=== PATIENT | female | born 1970 | race Caucasian/White ===

== ENCOUNTER 2017-01-10 23:11 | Emergency (ER) | payer BC ==
[~2017-01-10] VITALS: Ht 170.2 cm; Wt 81.6 kg
[2017-01-10 23:45] LABS: BILIRUBIN,URINE NEGATIVE (NEGATIVE); KETONES,URINE NEGATIVE (NEGATIVE); LEUKOCYTE ESTERASE ,URINE 3+ (NEGATIVE); NITRITE,URINE NEGATIVE (NEGATIVE); PH,URINE 6 (5-9); PROTEIN,URINE 3+ (NEGATIVE); UROBILINOGEN,URINE NORMAL (NORMAL)
--- NOTE | 2017-01-10 23:45 | ED Abdominal Pain ---
General Chief Complaint: Abdominal/GI Problems Stated Complaint: ABD PAIN Nursing Triage Note: PT TO ED 6 W/ C/ O RECTAL BLEEDING ONSET YESTERDAY ET VAGINAL BLEEDING ONSET TODAY. REPORTS HAD RECTAL BLEEDING X5 WKS AGO, WAS TOLD BY PCP IF BLEEDING HAPPENED AGAIN TO SCHEDULE A COLONSCOPY. PT ALSO C/O A "KNOT" AND CRAMPING TO HER RLQ ONSET TODAY. NO OTHER C/O VOICED Sepsis Screen: No Definite Risk Source of Information: Patient History of Present Illness Time Seen By Provider: 23:20 Initial Comments PT STATES 5 WEEKS AGO, SHE HAD RECTAL BLEEDING SAW DR. WAGGONER, WHO REFERRED HER TO UNKNOWN SURGEON AT [facility] IN [place]-PT DID NOT MAKE APPOINTMENT. PT HAS HAD INTERMITTENT BLOOD ON TISSUE WITH WIPING SINCE THEN, BUT HAS NOT FOLLOWED UP YESTERDAY HAD MORE RECTAL BLEEDING STATES BLOOD IS ON OUTSIDE OF FORMED STOOL NO DIARRHEA OR CONSTIPATION AND BM'S HAVE BEEN REGULAR TODAY HAD VAGINAL BLEEDING AND MORE RECTAL BLEEDING--STATES HER PERIOD IS A WEEK EARLY, AND NORMALLY IS VERY REGULAR. LMP 12/18/16, NO CONTROL AROUND 1800 TONIGHT, SHE BEGAN TO HAVE RLQ PAIN AND RIGHT LOWER BACK PAIN NO DIFFICULTY URINATING NO FEVER MILD NAUSEA, NO VOMITING NO RECTAL PAIN PT HAS ENDOMETRIOSIS AND STATES SHE ALWAYS HAS LOW GRADE PELVIC DISCOMFORT FROM THAT, BUT THIS IS NOT THE SAME PT HAS ALSO HAD AN ECTOPIC WITH RIGHT SALPINGECTOMY AND APPENDECTOMY 14 YEARS AGO. PCP: DR. WAGGONER STAIN REMOVER: DR. CARBAJAL Allergies and Home Medications Allergies Coded Allergies: ciprofloxacin (Verified Allergy, Unknown, 01/10/17) Home Medications No Active Prescriptions or Reported Meds Review of Systems Constitutional: no symptoms reported Respiratory: No Symptoms Reported Cardiovascular: No Symptoms Reported Gastrointestinal: See HPI, Abdominal Pain, Denies Constipated, Denies Diarrhea , Nausea, Denies Poor Appetite, Denies Poor Fluid Intake, Rectal Bleeding, Denies Vomiting Genitourinary: See HPI Musculoskeletal: see HPI, back pain Skin: no symptoms reported Psychiatric/Neurological: No Symptoms Reported Endocrine: No Symptoms Reported Hematologic/Lymphatic: See HPI Past Tqqnstt-Cqgmfo-Aoltqd Hx Patient Social History Alcohol Use: Denies Use Recreational Drug Use: No Smoking Status: Never a Smoker Recent Foreign Travel: No Contact w/Someone Who Travel: No Recent Infectious Disease Expo: No Recent Hopitalizations: No Surgeries HX Surgeries: Yes (ECTOPIC WITH RIGHT SALPINGECTOMY AND APPY) Surgeries: Appendectomy, Section Respiratory Hx Respiratory Disorders: No Cardiovascular Hx Cardiac Disorders: No Neurological Hx Neurological Disorders: No Reproductive System Hx Reproductive Disorders: Yes Female Reproductive Disorders: Endometriosis Genitourinary Hx Genitourinary Disorders: No Gastrointestinal Hx Gastrointestinal Disorders: No Musculoskeletal Hx Musculoskeletal Disorders: No Endocrine Hx Endocrine Disorders: No HEENT HX ENT Disorders: No Cancer Hx Cancer: No Psychosocial Hx Psychiatric Problems: No Integumentary HX Skin/Integumentary Disorder: No Blood Transfusions Hx Blood Disorders: No Physical Exam Vital Signs VS - Last 72 Hours, by Label 01/10/17 23:15 Temp 96.8 Pulse 85 Resp 20 B/P (MAP) 123/108 Pulse Ox 99 O2 Delivery Room Air Capillary Refill : Less Than 3 Seconds General Appearance: WD/WN, no apparent distress, other (DOES NOT APPEAR TO BE IN ANY DISCOMFORT. WALKS UPRIGHT AND MOVES WITHOUT DIFFICULTY) Respiratory: normal breath sounds, no respiratory distress, no accessory muscle use Cardiovascular: regular rate, rhythm, no murmur Gastrointestinal: normal bowel sounds, soft, no organomegaly, no pulsatile mass , No distended, No guarding, No rebound, tenderness (SUPRAPUBIC TENDERNESS, AND SLIGHT TENDERNESS IN RLQ), No hernia, No mass Rectal: normal rectal tone, hemorrhoids (MILD NON-INFLAMED HEMORRHOID AT 6:00) , tenderness (SLIGHT), other (PT IS HAVING VAGINAL BLEEDING AT THIS TIME AND DIFFICULT TO DETERMINE IF EXTERNAL BLOOD AROUND RECTAL AND PERINEAL AREA IS FROM VAGINA OR RECTAL. ) Extremities: normal inspection Back: no CVA tenderness Neurologic/Psychiatric: container washer II-XII nml as tested, no motor/sensory deficits, alert, normal mood/affect, oriented x 3 Skin: normal color, warm/dry Progress/Results/Core Measures Results/Orders Lab Results Laboratory Tests Test 01/10/17 23:30 01/10/17 23:43 Range/Units Urine Color RED H Urine Clarity BLOODY H Urine pH 6 5-9 Urine Specific [place] 1.020 1.016-1.022 Urine Protein 3+ H NEGATIVE Urine Glucose (UA) NEGATIVE NEGATIVE Urine Ketones NEGATIVE NEGATIVE Urine Nitrite NEGATIVE NEGATIVE Urine Bilirubin NEGATIVE NEGATIVE Urine Urobilinogen NORMAL NORMAL MG/DL Urine Leukocyte Esterase 3+ H NEGATIVE Urine RBC (Auto) 5+ H NEGATIVE Urine RBC TNTC H /HPF Urine WBC 5-10 H /HPF Urine Crystals NONE /LPF Urine Bacteria NEGATIVE /HPF Urine Casts NONE /LPF Urine Mucus NEGATIVE /LPF Urine Culture Indicated YES White Blood Count 9.0 4.3-11.0 10^3/uL Red Blood Count 4.92 4.35-5.85 10^6/uL Hemoglobin 13.9 11.5-16.0 G/DL Hematocrit 41 35-52 % Mean Corpuscular Volume 84 80-99 FL Mean Corpuscular Hemoglobin 28 25-34 PG Mean Corpuscular Hemoglobin Concent 34 32-36 G/DL Red Cell Distribution Width 13.5 10.0-14.5 % Platelet Count 261 130-400 10^3/uL Mean Platelet Volume 11.8 H 7.4-10.4 FL Neutrophils (%) (Auto) 59 42-75 % Lymphocytes (%) (Auto) 28 12-44 % Monocytes (%) (Auto) 8 0-12 % Eosinophils (%) (Auto) 4 0-10 % Basophils (%) (Auto) 0 0-10 % Neutrophils # (Auto) 5.4 1.8-7.8 X 10^3 Lymphocytes # (Auto) 2.5 1.0-4.0 X 10^3 Monocytes # (Auto) 0.8 0.0-1.0 X 10^3 Eosinophils # (Auto) 0.4 H 0.0-0.3 10^3/uL Basophils # (Auto) 0.0 0.0-0.1 10^3/uL Prothrombin Time 12.8 12.2-14.7 SEC INR Comment 1.0 0.8-1.4 Activated Partial Thromboplast Time 29 24-35 SEC Sodium Level 142 135-145 MMOL/L Potassium Level 3.7 3.6-5.0 MMOL/L Chloride Level 109 H 98-107 MMOL/L Carbon Dioxide Level 23 21-32 MMOL/L Anion Gap 10 5-14 MMOL/L Blood Urea Nitrogen 12 7-18 MG/DL Creatinine 1.05 0.60-1.30 MG/DL Estimat Glomerular Filtration Rate 56 BUN/Creatinine Ratio 11 Glucose Level 106 H 70-105 MG/DL Calcium Level 9.0 8.5-10.1 MG/DL Total Bilirubin 0.4 0.1-1.0 MG/DL Aspartate Amino Transf (AST/SGOT) 19 5-34 U/L Alanine Aminotransferase (ALT/SGPT) 14 0-55 U/L Alkaline Phosphatase 72 40-136 U/L Total Protein 7.1 6.4-8.2 G/DL Albumin 4.1 3.2-4.5 G/DL Amylase Level 46 25-125 U/L Lipase 17 8-78 U/L Serum Test, Qualitative NEGATIVE NEGATIVE My Orders Orders - TRINIDAD KNIGHT DO Saline Lock/Iv-Start (01/10/17 23:20) Amylase (01/10/17 23:20) Cbc With Automated Diff (01/10/17 23:20) Comprehensive Metabolic Panel (01/10/17 23:20) Hcg,Qualitative Serum (01/10/17 23:20) Lipase (01/10/17 23:20) Protime With Inr (01/10/17 23:20) Partial Thromboplastin Time (01/10/17 23:20) Ua Culture If Indicated (01/10/17 23:20) Urine Culture (01/10/17 23:30) Ketorolac Injection (Toradol Injection) (01/11/17 00:15) Saline Lock/Iv-Start (01/11/17 00:13) Lactated Ringers (Lr 1000 Ml Iv Solution (01/11/17 00:13) Ketorolac Injection (Toradol Injection) (01/11/17 00:12) Lactated Ringers (Lr 1000 Ml Iv Solution (01/11/17 00:12) Ct Abdomen/Pelvis W (01/11/17 00:21) Iohexol Injection (Omnipaque 350 Mg/Ml 1 (01/11/17 00:45) Ns (Ivpb) (Sodium Chloride 0.9% Ivpb Bag (01/11/17 00:45) Medications Given in ED Current Medications Medications Dose Ordered Sig/Max Route Start Time Stop Time Status Last Admin Dose Admin Iohexol 100 ml ONCE ONCE IV 01/11/17 00:45 01/11/17 00:49 DC 01/11/17 00:45 100 ML Ketorolac Tromethamine 30 mg ONCE ONCE IVP 01/11/17 00:15 01/11/17 00:16 DC 01/11/17 00:18 30 MG Lactated Ringer's 1,000 ml @ 0 mls/hr Q0M ONCE IV 01/11/17 00:13 01/11/17 00:14 DC 01/11/17 00:18 1,000 MLS/HR Sodium Chloride 80 ml ONCE ONCE IV 01/11/17 00:45 01/11/17 00:49 DC 01/11/17 00:45 80 ML Vital Signs/I&O Vital Sign - Last 12Hours 01/10/17 23:15 Temp 96.8 Pulse 85 Resp 20 B/P (MAP) 123/108 Pulse Ox 99 O2 Delivery Room Air Blood Pressure Mean: 113 Progress Note : Progress Note PAIN EASED AT DISMISSAL Diagnostic Imaging Comments CT ABDOMEN/PELVIS--NO ACUTE PROCESS, FEW SMALL MESENTERIC NODES--PER [facility] VIA FAX @ [id number] Reviewed: Reviewed by Me Departure Impression Impression: Primary Impression: Urinary tract infection Additional Impressions: Lower abdominal pain Rectal bleeding Irregular menstrual cycle Disposition: HOME, SELF-CARE Condition: Improved Departure-Patient Inst. Referrals: JV WAGGONER DO (PCP) Primary Care Physician Patient Instructions: Acute Abdomen (Belly Pain), Adult (DC), Bloody Stools, Adult (DC), IRREGULAR VAGINAL BLEEDING, Urinary Tract Infection, Adult (DC) Add. Discharge Instructions: LOTS OF CLEAR LIQUIDS--NO COFFEE, POP OR TEA FOLLOW UP WITH SURGEON IN [place] THAT DR. WAGGONER REFERRED YOU TO, NEXT WEEK-- CALL ON FRIDAY FOR APPOINTMENT RETURN TO ER IF SYMPTOMS WORSEN All discharge instructions reviewed with patient and/or family. Voiced understanding. Scripts Naproxen (Naproxen) 500 Mg Tablet 500 MG PO BID, #20 TAB Prov: TRINIDAD KNIGHT DO 01/11/17 Nitrofurantoin Monohyd/M-Cryst (Macrobid 100 mg Capsule) 100 Mg Capsule 100 MG PO BID, #20 CAP Prov: TRINIDAD KNIGHT DO 01/11/17 TRINIDAD KNIGHT DO Jan 10, 2017 23:45
[2017-01-10 23:50] LABS: BASOPHILS % (AUTO) 0 % (0-10); EOSINOPHILS # (AUTO) 0.4 10^3/uL (0.0-0.3); EOSINOPHILS % (AUTO) 4 % (0-10); LYMPHOCYTES # (AUTO) 2.5 X 10^3 (1.0-4.0); LYMPHOCYTES % (AUTO) 28 % (12-44); MEAN CORPUSCULAR HEMOGLOBIN 28 PG (25-34); MEAN CORPUSCULAR HGB CONC 34 G/DL (32-36); MEAN CORPUSCULAR VOLUME 84 FL (80-99); MEAN PLATELET VOLUME 11.8 FL (7.4-10.4); MONOCYTES # (AUTO) 0.8 X 10^3 (0.0-1.0); MONOCYTES % (AUTO) 8 % (0-12); NEUTROPHILS # (AUTO) 5.4 X 10^3 (1.8-7.8); NEUTROPHILS % (AUTO) 59 % (42-75); PLATELET COUNT 261 10^3/uL (130-400); RED BLOOD COUNT 4.92 10^6/uL (4.35-5.85); RED CELL DISTRIBUTION WIDTH 13.5 % (10.0-14.5)
[2017-01-11 00:01] LABS: PROTHROMBIN TIME PATIENT 12.8 SEC (12.2-14.7)
[2017-01-11 00:12] LABS: ALBUMIN 4.1 G/DL (3.2-4.5); BILIRUBIN,TOTAL 0.4 MG/DL (0.1-1.0); CREATININE SERUM 1.05 MG/DL (0.60-1.30); POTASSIUM 3.7 MMOL/L (3.6-5.0); TOTAL PROTEIN 7.1 G/DL (6.4-8.2)
[2017-01-11] MEDS ORDERED: LACTATED RINGERS 1,000 ML IV ONE ×2 (00:12→00:13)
[2017-01-11] MEDS ORDERED: KETOROLAC 30 MG/ML VIAL ONE (00:12)
[2017-01-11] MEDS ORDERED: KETOROLAC 30 MG/ML VIAL IVP ONE (00:15)
[2017-01-11] MEDS ORDERED: IOHEXOL 350 MG/ML 100 ML (OMNIPAQUE 350) VIAL IV ONE (00:45)
[2017-01-11] MEDS ORDERED: NS 100 ML (IVPB) BAG IV ONE (00:45)
[2017-01-11] MEDS ORDERED: RX-NITROFURANTOIN 100 MG (MACROBID) CAP PPK#2 PO STA (01:32)
[2017-01-11] MEDS ORDERED: RX-NAPROXEN (NAPROSYN) 250 MG TAB PPK#4 PO STA (01:32)
[2017-01-11] MEDS ORDERED: RX-NAPROXEN (NAPROSYN) 250 MG TAB PPK#4 PO ONE (01:32)
[2017-01-11] MEDS ORDERED: RX-NITROFURANTOIN 100 MG (MACROBID) CAP PPK#2 PO ONE (01:32)
[2017-01-11] MEDS ORDERED: NITR-65 PO (01:35)
[2017-01-11] MEDS ORDERED: NAPR500T3 PO (01:35)
[2017-01-11 01:43] VITALS: BP 126/85
--- NOTE | 2017-01-11 06:11 | Diagnostic Imaging Report ---
PROCEDURE: CT abdomen and pelvis with contrast. TECHNIQUE: Multiple contiguous axial images were obtained through the abdomen and pelvis after administration of intravenous contrast. INDICATION: Rectal bleeding with new-onset vaginal bleeding, right lower quadrant pain. COMPARISON: No priors. FINDINGS: The lung bases are nonacute. The liver, gallbladder, bile ducts, spleen, adrenals, and pancreas are unremarkable. There is no hydronephrosis. The kidneys appear normal. The appendix cannot be convincingly identified; however, there is no pericecal inflammation to suggest an abnormal inflamed appendix underlying. If not surgically absent, it is likely oriented inferiorly. There are some mesenteric lymph nodes medial to the cecum and ascending colon in the right lower quadrant, the largest of which measures 1.4 cm and in the appropriate scenario, mesenteric adenitis could not be excluded. The liver, gallbladder, bile ducts, spleen, adrenals, and pancreas are all negative. The kidneys are unobstructed and normal. The aortoiliac and mesenteric vessels are patent and nonaneurysmal. There is trace free fluid within the cul-de-sac. The uterus is heterogeneous and likely fibroid. There are ovarian follicular cysts bilaterally. The urinary bladder is decompressed. Small and large bowel schmidt non-thickened. No perienteric or pericolonic edema. IMPRESSION: No definitive identification of the appendix but no findings felt suggestive of underlying appendicitis. Borderline mesenteric adenitis right lower quadrant. Trace likely physiologic pelvic free fluid. Probable uterine fibroids. No acute adnexal abnormality. Unobstructed urinary tracts otherwise negative. Agree with preliminary. Dictated by: Dictated on workstation # [id number]
--- OUTSIDE RECORDS SUMMARY | 2017-02-16 04:24 | XMS REPORT | Continuity of Care Document ---
Author Author [facility] Organization [facility] Address Unknown Phone Unavailable Allergies Active Description Code Type Severity Reaction Onset Reported/Identified Relationship to Patient Clinical Status Yes ciprofloxacin [id number] Drug Allergy Unknown N/A 01/10/2017 Medications Problems Date Dx Coded Attending Type Code Diagnosis Diagnosed By 11/24/2014 GABINO CARBAJAL MD, Ot V76.12 06/28/2016 GABINO CARBAJAL MD, Ot V76.12 OT SCREEN MAMMO-MALIGN NEOPLASM OF REI 01/11/2017 ANTONIA DO, TRINIDAD K Ot K62.5 HEMORRHAGE OF ANUS AND RECTUM 01/11/2017 ANTONIA DO, TRINIDAD K Ot N30.91 CYSTITIS, UNSPECIFIED WITH HEMATURIA 01/11/2017 ANTONIA DO, TRINIDAD K Ot N92.1 EXCESSIVE AND FREQUENT MENSTRUATION WITH 01/11/2017 ANTONIA DO, TRINIDAD K Ot R10.31 RIGHT LOWER QUADRANT PAIN 01/13/2017 ANTONIA DO, TRINIDAD K Ot K62.5 HEMORRHAGE OF ANUS AND RECTUM 01/13/2017 ANTONIA DO, TRINIDAD K Ot N30.91 CYSTITIS, UNSPECIFIED WITH HEMATURIA 01/13/2017 ANTONIA DO, TRINIDAD K Ot N92.1 EXCESSIVE AND FREQUENT MENSTRUATION WITH 01/13/2017 ANTONIA DO, TRINIDAD K Ot R10.31 RIGHT LOWER QUADRANT PAIN 02/05/2017 GABINO CARBAJAL MD, Ot V76.12 OTH SCREEN MAMMO-MALIGN NEOPLASM OF REI 02/06/2017 GABINO CARBAJAL MD, Ot Z12.31 ENCNTR SCREEN MAMMOGRAM FOR MALIGNANT NE Procedures Results Test Result Range Complete urinalysis with reflex to culture - 01/10/17 23:30 Urine color determination RED NRG Urine clarity determination BLOODY NRG Urine pH measurement by test strip 6 5- 9 Specific gravity of urine by test strip 1.020 1.016-1.022 Urine protein assay by test strip, semi-quantitative 3+ NEGATIVE Urine glucose detection by automated test strip NEGATIVE NEGATIVE Erythrocytes detection in urine sediment by light microscopy 5+ NEGATIVE Urine ketones detection by automated test strip NEGATIVE NEGATIVE Urine nitrite detection by test strip NEGATIVE NEGATIVE Urine total bilirubin detection by test strip NEGATIVE NEGATIVE Urine urobilinogen measurement by automated test strip (mass/volume) NORMAL NORMAL Urine leukocyte esterase detection by dipstick 3+ NEGATIVE Automated urine sediment erythrocyte count by microscopy (number/high power field) TNTC NRG Automated urine sediment leukocyte count by microscopy (number/high power field ) [HPF] NRG Bacteria detection in urine sediment by light microscopy NEGATIVE NRG Crystals detection in urine sediment by light microscopy NONE NRG Casts detection in urine sediment by light microscopy NONE NRG Mucus detection in urine sediment by light microscopy NEGATIVE NRG Complete urinalysis with reflex to culture YES NRG Bacterial urine culture - 01/10/17 23:30 Bacterial urine culture [id number] NRG COLONY COUNT <10,000 NRG FTX;REPORTABLE SEE COMMENT NRG URINE CULTURE RESULTS PLUS NRG Complete blood count (CBC) with automated white blood cell (WBC) differential - 01/10/17 23:43 Blood leukocytes automated count (number/volume) 9.0 10*3/ uL 4.3-11.0 Blood erythrocytes automated count (number/volume) 4.92 10*6 /uL 4.35-5.85 Venous blood hemoglobin measurement (mass/volume) 13.9 g/dL 11.5-16.0 Blood hematocrit (volume fraction) 41 % 35-52 Automated erythrocyte mean corpuscular volume 84 [foz_us] 80-99 Automated erythrocyte mean corpuscular hemoglobin (mass per erythrocyte) 28 pg 25-34 Automated erythrocyte mean corpuscular hemoglobin concentration measurement ( mass/volume) 34 g/dL 32-36 Automated erythrocyte distribution width ratio 13.5 % 10.0-14.5 Automated blood platelet count (count/volume) 261 10*3/uL 130-400 Automated blood platelet mean volume measurement 11.8 [foz_ us] 7.4-10.4 Automated blood neutrophils/100 leukocytes 59 % 42-75 Automated blood lymphocytes/100 leukocytes 28 % 12-44 Blood monocytes/100 leukocytes 8 % 0-12 Automated blood eosinophils/100 leukocytes 4 % 0-10 Automated blood basophils/100 leukocytes 0 % 0-10 Blood neutrophils automated count (number/volume) 5.4 10*3 1.8-7.8 Blood lymphocytes automated count (number/volume) 2.5 10*3 1.0-4.0 Blood monocytes automated count (number/volume) 0.8 10*3 0.0-1.0 Automated eosinophil count 0.4 10*3/uL 0.0-0.3 Automated blood basophil count (count/volume) 0.0 10*3/uL 0.0-0.1 PT panel in platelet poor plasma by coagulation assay - 01/10/17 23:43 Prothrombin time (PT) in platelet poor plasma by coagulation assay 12.8 s 12.2-14.7 INR in platelet poor plasma or blood by coagulation assay 1.0 0.8-1.4 Activated partial thromboplastin time (aPTT) in platelet poor plasma bycoagulation assay - 01/10/17 23:43 Activated partial thromboplastin time (aPTT) in platelet poor plasma bycoagulation assay 29 s 24-35 Serum or plasma choriogonadotropin ( test) detection - 01/10/17 23:43 Serum or plasma choriogonadotropin ( test) detection NEGATIVE NEGATIVE Comprehensive metabolic panel - 01/10/17 23:43 Serum or plasma sodium measurement (moles/volume) 142 mmol/ L 135-145 Serum or plasma potassium measurement (moles/volume) 3.7 mmol/L 3.6-5.0 Serum or plasma chloride measurement (moles/volume) 109 mmol /L 98-107 Carbon dioxide 23 mmol/L 21-32 Serum or plasma anion gap determination (moles/volume) 10 mmol/L 5-14 Serum or plasma urea nitrogen measurement (mass/volume) 12 mg/dL 7-18 Serum or plasma creatinine measurement (mass/volume) 1.05 mg /dL 0.60-1.30 Serum or plasma urea nitrogen/creatinine mass ratio 11 NRG Serum or plasma creatinine measurement with calculation of estimated glomerular filtration rate 56 NRG Serum or plasma glucose measurement (mass/volume) 106 mg/dL 70-105 Serum or plasma calcium measurement (mass/volume) 9.0 mg/dL 8.5-10.1 Serum or plasma total bilirubin measurement (mass/volume) 0.4 mg/dL 0.1-1.0 Serum or plasma alkaline phosphatase measurement (enzymatic activity/volume) 72 U/L 40-136 Serum or plasma aspartate aminotransferase measurement (enzymatic activity/ volume) 19 U/L 5-34 Serum or plasma alanine aminotransferase measurement (enzymatic activity/volume ) 14 U/L 0-55 Serum or plasma protein measurement (mass/volume) 7.1 g/dL 6.4-8.2 Serum or plasma albumin measurement (mass/volume) 4.1 g/dL 3.2-4.5 Serum or plasma amylase measurement (enzymatic activity/volume) - 01/10/17 23: 43 Serum or plasma amylase measurement (enzymatic activity/volume) 46 U/L 25-125 Lipase - 01/10/17 23:43 Lipase 17 U/L 8-78 Encounters ACCT No. Visit Date/Time Discharge Status Pt. Type Provider Facility Loc./Unit Complaint [id number] 01/10/2017 23:13:00 2016 01:43:00 DIS Emergency ANTONIA RO TRINIDAD Jaylene [facility] ER ABD PAIN [id number] 11/08/2014 15:24:00 2014 23:59:59 CLS Outpatient GABINO CARBAJAL MD [facility] RAD SCREENING [id number] 02/06/2017 10:47:00 ACT Outpatient GABINO CARBAJAL MD [facility] RAD SCREENING
== END 2017-01-11 01:43 | disposition home or self-care (01) ==
LOC: EDUNIT# 23:11 → ER 23:13
DX: K62.5 Hemorrhage of anus and rectum (principal); N30.91 Cystitis, unspecified with hematuria; R10.31 Right lower quadrant pain; N92.1 Excessive and frequent menstruation with irregular cycle
CPT/HCPCS: 36415; 74177; 80053; 81000; 82150; 83690; 84703; 85025; 85610; 85730; 87088; 96361; 96374

== ENCOUNTER → 2017-02-06 | Outpatient (CLI) | payer BC ==
[~2017-02-06] MED LIST: NAPR500T3 PO; NITR-65 PO
--- NOTE | 2017-02-11 11:41 | Diagnostic Imaging Report ---
Bilateral screening mammogram The current study was also evaluated with a Computer Aided Detection (CAD) system. INDICATION: Screening. No current complaints stated on the questionnaire. COMPARISON: 11/08/14. FINDINGS: The breasts are composed of heterogeneously dense parenchyma which may decrease mammographic sensitivity. There is no mass, architectural distortion or suspicious cluster of calcification. Allowing for technique and positional differences, no suspicious change is seen. IMPRESSION: Dense breasts with no definite change. ACR BI-RADS Category 2: Benign findings. Result letter will be mailed to the patient. Note: At least 10% of breast cancer is not imaged by mammography. Dictated by: Dictated on workstation # [id number]
== END ==
LOC: RAD 10:47
PROVIDERS: ATTEND Obstetrics & Gynecology
DX: Z12.31 Encounter for screening mammogram for malignant neoplasm of breast (principal)
CPT/HCPCS: 77067

== ENCOUNTER → 2018-10-29 | Outpatient (CLI) | payer BC ==
[~2018-10-29] MED LIST changes: +NAPR-915 PO; -NAPR500T3 PO
--- NOTE | 2018-10-30 17:23 | Diagnostic Imaging Report ---
INDICATION: Routine screening. COMPARISON: Prior mammogram from 02/06/2017 and 11/08/2014. EXAMINATION: 2D and 3D bilateral screening mammography was performed with CAD. The current study was also evaluated with a Computer Aided Detection (CAD) system. FINDINGS: Both breasts remain heterogeneously dense, limiting the sensitivity of mammography. The parenchymal pattern is stable. No dominant mass or malignant appearing microcalcifications are seen. The axillae are unremarkable. IMPRESSION: No mammographic features suspicious for malignancy are identified. ACR BI-RADS Category 1: Negative. Result letter will be mailed to the patient. Note: At least 10% of breast cancer is not imaged by mammography. Dictated on workstation # [id number]
== END ==
LOC: RAD 15:08
PROVIDERS: ATTEND Obstetrics & Gynecology
DX: Z12.31 Encounter for screening mammogram for malignant neoplasm of breast (principal)
CPT/HCPCS: 77067

== ENCOUNTER → 2019-05-03 | Outpatient (CLI) | payer BC ==
--- NOTE | 2019-05-03 10:21 | Diagnostic Imaging Report ---
PROCEDURE: US Abdomen, limited. TECHNIQUE: Multiple realtime grayscale images were obtained over the abdomen in various projections. INDICATION: Generalized abdominal pain. FINDINGS: Liver is upper limits of normal in size at 17.2 cm. No discrete liver mass is identified. Gallbladder is without stones or sludge. No wall thickening or biliary duct dilatation is identified. The pancreas is unremarkable. Right kidney is unremarkable. There is no ascites. Areas of pain in the right lower quadrant were evaluated as well. No mass is detected. IMPRESSION: Unremarkable limited abdominal ultrasound. Dictated by: Dictated on workstation # [id number]
== END ==
LOC: RAD 08:58
PROVIDERS: ATTEND Internal Medicine
DX: R10.84 Generalized abdominal pain (principal)
CPT/HCPCS: 76705

== ENCOUNTER → 2021-06-07 | Outpatient (CLI) | payer BC ==
--- NOTE | 2021-06-07 09:25 | Diagnostic Imaging Report ---
INDICATION: Routine screening. COMPARISON is made with prior mammograms 10/29/2018 and 02/06/2017. 2-D and 3-D bilateral screening mammography was performed with CAD. Both breasts are heterogeneously dense, limiting the sensitivity of mammography. The parenchymal pattern is stable. No mass or malignant-appearing microcalcifications are seen. Axillae are unremarkable. IMPRESSION: BI-RADS Category 1. No mammographic features suspicious for malignancy are identified. ACR BI-RADS Category 1: Negative. Result letter will be mailed to the patient. Note: At least 10% of breast cancer is not imaged by mammography. Dictated by: Dictated on workstation # [id number]
== END ==
LOC: RAD 07:45
PROVIDERS: ATTEND Internal Medicine
DX: Z12.31 Encounter for screening mammogram for malignant neoplasm of breast (principal)
CPT/HCPCS: 77063; 77067

== ENCOUNTER → 2023-04-30 | Outpatient (CLI) | payer BC ==
--- NOTE | 2023-04-30 14:16 | Diagnostic Imaging Report ---
3-D bilateral screening mammogram with CAD. The current study was also evaluated with a Computer Aided Detection (CAD) system. This study was compared to the prior exams of 06/07/2021 and 10/29/2018. At this time there are no current complaints. The current study was also evaluated with a Computer Aided Detection (CAD) system. FINDINGS: The fibroglandular tissue in both breasts is heterogeneously dense. This does limit the sensitivity of this exam. Overall, there does not appear to have been any significant change when compared to the prior study. No primary or secondary sign of malignancy is noted. IMPRESSION: There is no radiographic evidence for malignancy. ACR BI-RADS Category 1: Negative. Result letter will be mailed to the patient. Note: At least 10% of breast cancer is not imaged by mammography. Dictated by: Dictated on workstation # [id number]
== END ==
LOC: RAD 10:17
PROVIDERS: ATTEND Internal Medicine
DX: Z12.31 Encounter for screening mammogram for malignant neoplasm of breast (principal)
CPT/HCPCS: 77063; 77067